=== PATIENT | female | born 1955 | race Caucasian/White ===

== ENCOUNTER → 2016-10-14 | Outpatient (CLI) | payer OTHER ==
--- NOTE | 2016-10-14 17:28 | DX ---
Lumbar Spine, 2 Views History: Recheck hardware. Comparison: Lumbar spine July 07, 2016. Findings: Bilateral transpedicular screw and pat fusion at L4 and L5 is stable. Hardware is intact wi thout evidence of loosening. Intervertebral graft material is stable. The 2 mm retrolisthesis of L4 o n L5 is unchanged. Mild vertebral spondylosis, most prominent at L5-S1, is stable. Moderate stool is present in the colon. Impression: Stable L4-L5 fusion.
== END ==
LOC: CIMAGING 08:00
PROVIDERS: ATTEND Orthopaedic Surgery Orthopaedic Surgery of the Spine
DX: Z47.89 Encounter for other orthopedic aftercare (principal); Z98.1 Arthrodesis status
CPT/HCPCS: 72100-PO

== ENCOUNTER → 2017-01-13 | Outpatient (CLI) | payer OTHER | LOC: CIMAGING 07:54 | PROVIDERS: ATTEND Orthopaedic Surgery Orthopaedic Surgery of the Spine | DX: Z09 Encounter for follow-up examination after completed treatment for conditions other than malignant neoplasm (principal); Z98.1 Arthrodesis status | CPT/HCPCS: 72100-PO ==

== ENCOUNTER → 2017-04-25 | Outpatient (CLI) | payer OTHER | LOC: CIMAGING 07:38 | PROVIDERS: ATTEND Orthopaedic Surgery Orthopaedic Surgery of the Spine | DX: Z09 Encounter for follow-up examination after completed treatment for conditions other than malignant neoplasm (principal); Z98.1 Arthrodesis status | CPT/HCPCS: 72100-PO ==

== ENCOUNTER → 2017-09-01 | Outpatient (CLI) | payer OTHER | LOC: FIMAGING 12:11 | PROVIDERS: ATTEND Obstetrics & Gynecology | DX: Z12.31 Encounter for screening mammogram for malignant neoplasm of breast (principal) | CPT/HCPCS: G0202 ==

== ENCOUNTER 2019-02-02 09:27 | Emergency (ER) | payer OTHER ==
--- NOTE | 2019-02-02 11:03 | EDPHY ---
H & P Stated Complaint: [id number] using electric toothbrush noted tingling all over/ now resolving Time Seen by Provider: 02/02/19 10:45 HPI/ROS: CHIEF COMPLAINT: Vertigo, tingling, nausea HISTORY OF PRESENT ILLNESS: The patient is a 63-year-old female who comes to the emergency department complaining of dizziness, nausea and a buzzing sensation in her arms and head. She states that it began yesterday when she was using her electric toothbrush which she does every day. She thought that it was strange but it seemed to resolve after about an hour or so she did not worry too much about it. It happened again today again while using her toothbrush but did not resolve for several hours. She thought maybe she was anxious because her dad recently. She did have a history of anxiety attacks in the past but has not had 1 for several years. She denies shortness of breath or chest pain. She denies recent fevers or illness. She also states that she has had benign positional vertigo in the past but that seemed more severe than what she experienced today. No palpitations. No focal weakness or deficits. Some imbalance while ambulating Severity: Moderate Modifying factors: Gradually improves with time REVIEW OF SYSTEMS: Constitutional: denies: chills, fever, recent illness, recent injury EENTM: denies: blurred vision, double vision, nose congestion Respiratory: denies: cough, shortness of breath Cardiac: denies: chest pain, irregular heart rate, lightheadedness, palpitations Gastrointestinal/Abdominal: denies: abdominal pain, diarrhea, nausea, vomiting, blood streaked stools Genitourinary: denies: dysuria, frequency, hematuria, pain Musculoskeletal: denies: joint pain, muscle pain Skin: denies: lesions, rash, jaundice, bruising Neurological: See HPI denies: headache, numbness, weakness Hematologic/Lymphatic: denies: blood clots, easy bleeding, easy bruising Immunologic/allergic: denies: HIV/AIDS, transplant 10 systems reviewed and negative except as noted EXAM: GENERAL: Well-appearing, well-nourished and in no acute distress. HEAD: Atraumatic, normocephalic. EYES: Pupils equal round and reactive to light, extraocular movements intact, sclera anicteric, conjunctiva are normal. ENT: TMs normal, nares patent, oropharynx clear without exudates. Moist mucous membranes. NECK: Normal range of motion, supple without lymphadenopathy or JVD. LUNGS: Breath sounds clear to auscultation bilaterally and equal. No wheezes rales or rhonchi. HEART: Regular rate and rhythm without murmurs, rubs or gallops. ABDOMEN: Soft, nontender, normoactive bowel sounds. No guarding, no rebound. No masses appreciated. BACK: No CVA tenderness, no spinal tenderness, step-offs or deformities EXTREMITIES: Normal range of motion, no pitting or edema. No clubbing or cyanosis. NEUROLOGICAL: NIH stroke score 0, Cranial nerves II through XII grossly intact. Normal speech, normal gait. Some difficulty with heel to toe ambulation. 5/5 strength, normal movement in all extremities, normal sensation , normal reflexes very slight nystagmus to the right. Normal head impulse testing, does have a mild skew deviation with right eye PSYCH: Normal mood, normal affect. SKIN: Warm, dry, normal turgor, no visible rashes or lesions. Source: Patient Exam Limitations: No limitations - Personal History Current Tetanus Diphtheria and Acellular Pertussis (TDAP): Yes - Medical/Surgical History Hx Asthma: No Hx Chronic Respiratory Disease: No Hx Diabetes: Yes Hx Cardiac Disease: No Hx Renal Disease: No Hx Cirrhosis: No Hx Alcoholism: No Hx HIV/AIDS: No Hx Splenectomy or Spleen Trauma: No Other PMH: diabetes l4-5 fusion - Family History Significant Family History: No pertinent family hx - Social History Smoking Status: Never smoked Alcohol Use: Sober Drug Use: None Constitutional: Initial Vital Signs Temperature (C) 36.7 C 02/02/19 09:34 Heart Rate 78 02/02/19 09:34 Respiratory Rate 18 02/02/19 09:34 Blood Pressure 129/92 H 02/02/19 09:34 O2 Sat (%) 98 02/02/19 09:34 O2 Delivery Mode Room Air Allergies/Adverse Reactions: No Known Allergies Allergy (Verified 02/02/19 09:33) Home Medications: Medication Instructions Recorded CITALOPRAM HYDROBROMIDE [Celexa] mg PO 11/15/10 Spironolactone [SPIRONOLACTONE] gm 11/15/10 TRAZODONE HCL mg PO 11/15/10 Celexa 02/02/19 Levothyroxine 05/02/19 Meclizine HCl [Meclizine HCl 25 mg 25 mg PO BID #20 tab 02/02/19 (RX,OTC)] Metformin 1000 mg 02/02/19 Medical Decision Making - Diagnostics EKG Interpretation: An EKG obtained and was read and documented in trace view. Please see trace view for full reading and report. Sinus rhythm, no acute ischemic changes Imaging Results: Imaging Impressions Neck CTA 02/02/19 11:00 Impression: 1. No acute vascular findings. 2. Degenerative change including moderate spinal canal narrowing from C3 through C6 with moderate to severe neural foraminal stenosis from C3 through C7. If symptoms persist and clinical suspicion warrants, consider MRI. 3. Additional findings as above. Findings discussed with Alyce Hunter on 02/02/2019 at 1326 hours. Stenoses are calculated using [place] Symptomatic Carotid Endarterectomy Trial (NASCET) criteria. Brain MRI 02/02/19 11:01 Impression: Normal MRI of the brain without contrast. Findings and recommendations discussed with Emergency Department physician, ALYCE HUNTER at 12:33 hour, 02/02/2019. Final report concurs with initial preliminary interpretation. Head CTA 02/02/19 11:01 Impression: 1. No acute vascular findings. 2. Degenerative change including moderate spinal canal narrowing from C3 through C6 with moderate to severe neural foraminal stenosis from C3 through C7. If symptoms persist and clinical suspicion warrants, consider MRI. 3. Additional findings as above. Findings discussed with Alyce Hunter on 02/02/2019 at 1326 hours. Stenoses are calculated using [place] Symptomatic Carotid Endarterectomy Trial (NASCET) criteria. Imaging: Discussed imaging studies w/ scalloper Radiologist ED Course/Re-evaluation: We discussed her MRI results. She is very much relieved. She is nauseous after rolling in turning over in the MRI machine. She has received Zofran. Will observe. Differential Diagnosis: Partial list of the Differential diagnosis considered include but were not limited to; anxiety, benign positional vertigo, dissection, CVA and although unlikely based on the history and physical exam, I also considered infection, trauma. - Data Points Laboratory Results: Laboratory Results 02/02/19 11:30 02/02/19 11:30 02/02/19 02/02/19 02/02/19 13:28 11:30 11:30 WBC RBC Hgb Hct MCV MCH MCHC RDW Plt Count MPV Neut % (Auto) Lymph % (Auto) Wilcox % (Auto) Eos % (Auto) Baso % (Auto) Nucleat RBC Rel Count Absolute Neuts (auto) Absolute Lymphs (auto) Absolute Monos (auto) Absolute Eos (auto) Absolute Basos (auto) Absolute Nucleated RBC Immature Gran % Immature Gran # PT 13.2 SEC SEC (12.0-15.0) INR 1.04 (0.83-1.16) APTT 26.8 SEC SEC (23.0-38.0) Sodium 137 mEq/L mEq/L (135-145) Potassium 4.7 mEq/L mEq/L (3.5-5.2) Chloride 104 mEq/L mEq/L (97-110) Carbon Dioxide 22 mEq/l mEq/l (22-31) Anion Gap 11 mEq/L mEq/L (6-14) BUN 18 mg/dL mg/dL (7-23) Creatinine 1.0 mg/dL mg/dL (0.6-1.0) Estimated GFR 56 Glucose 96 mg/dL mg/dL (70-100) Calcium 10.4 mg/dL mg/dL (8.5-10.4) POC Troponin I 0.00 ng/mL ng/mL (0.00-0.08) TSH 1.860 uIU/mL uIU/mL (0.465-4.680) 02/02/19 11:30 WBC 6.83 10^3/uL 10^3/uL (3.80-9.50) RBC 4.94 10^6/uL 10^6/uL (4.18-5.33) Hgb 15.8 g/dL g/dL (12.6-16.3) Hct 47.0 % % (38.0-47.0) MCV 95.1 fL fL (81.5-99.8) MCH 32.0 pg pg (27.9-34.1) MCHC 33.6 g/dL g/dL (32.4-36.7) RDW 12.2 % % (11.5-15.2) Plt Count 222 10^3/uL 10^3/uL (150-400) MPV 10.6 fL fL (8.7-11.7) Neut % (Auto) 53.3 % % (39.3-74.2) Lymph % (Auto) 36.5 % % (15.0-45.0) Wilcox % (Auto) 8.2 % % (4.5-13.0) Eos % (Auto) 1.2 % % (0.6-7.6) Baso % (Auto) 0.4 % % (0.3-1.7) Nucleat RBC Rel Count 0.0 % % (0.0-0.2) Absolute Neuts (auto) 3.64 10^3/uL 10^3/uL (1.70-6.50) Absolute Lymphs (auto) 2.49 10^3/uL 10^3/uL (1.00-3.00) Absolute Monos (auto) 0.56 10^3/uL 10^3/uL (0.30-0.80) Absolute Eos (auto) 0.08 10^3/uL 10^3/uL (0.03-0.40) Absolute Basos (auto) 0.03 10^3/uL 10^3/uL (0.02-0.10) Absolute Nucleated RBC 0.00 10^3/uL 10^3/uL (0-0.01) Immature Gran % 0.4 % % (0.0-1.1) Immature Gran # 0.03 10^3/uL 10^3/uL (0.00-0.10) PT INR APTT Sodium Potassium Chloride Carbon Dioxide Anion Gap BUN Creatinine Estimated GFR Glucose Calcium POC Troponin I TSH Medications Given: Discontinued Medications Lorazepam (Ativan Injection) 1 mg IVP EDNOW ONE Stop: 02/02/19 11:39 Last Admin: 02/02/19 11:40 Dose: 1 mg Ondansetron HCl (Zofran) 4 mg IVP EDNOW ONE Stop: 02/02/19 12:23 Last Admin: 02/02/19 12:25 Dose: 4 mg Point of Care Test Results: Chemistry 02/02/19 13:28 POC Troponin I 0.00 ng/mL ng/mL (0.00-0.08) Departure - Departure Disposition: Home, Routine, Self-Care Clinical Impression: Vertigo, Anxiety Condition: Fair Instructions: Vertigo (ED), Benign Paroxysmal Positional Vertigo (ED), Anxiety (ED) Referrals: Janki Batista MD [Primary Care Provider] - As per Instructions Luiz De Anda, PAC [Physician Gra[facility] Weigher] - 3-4 days, if not improved Prescriptions: Meclizine HCl [Meclizine HCl 25 mg (RX,OTC)] 25 mg PO BID #20 tab
[2019-02-02] MEDS ORDERED: LORazepam 2 MG/ML INJ IVP ONE (11:38)
[2019-02-02] MEDS ORDERED: LORazepam 2 MG/ML INJ ONE (11:38)
[2019-02-02 11:46] LABS: PLATELET COUNT 222 10^3/uL (150-400)
[2019-02-02] MEDS ORDERED: IOPAMIDOL (ISOVUE 370) 100 ML BTL IV ONE (12:09)
[2019-02-02 12:10] LABS: INR 1.04 (0.83-1.16); PROTIME(PATIENT) 13.2 SEC (12.0-15.0)
[2019-02-02] MEDS ORDERED: ONDANSETRON 4 MG/2 ML VIAL IVP ONE (12:22)
--- NOTE | 2019-02-02 13:42 | CPEKG ---
Test Reason : OPEN Blood Pressure : / mmHG Vent. Rate : 066 BPM Atrial Rate : 066 BPM P-R Int : 130 ms QRS Dur : 099 ms QT Int : 434 ms P-R-T Axes : 026 -12 041 degrees QTc Int : 455 ms Sinus rhythm Abnormal R-wave progression, early transition Confirmed by Alyce Hunter ([id number]) on 02/02/2019 1:42:07 PM Referred By: ALYCE HUNTER Confirmed By:Alyce Hunter
[2019-02-02 14:07] VITALS: BP 126/82
== END 2019-02-02 14:05 | disposition home or self-care (01) ==
DX: R42 Dizziness and giddiness (principal); F41.9 Anxiety disorder, unspecified
CPT/HCPCS: 70551-PN; 84484-ER; 96374; J2060; J2405; Q9967